=== PATIENT | female | born 1965 | race Caucasian/White ===

== ENCOUNTER 2016-11-27 17:09 | Emergency (ER) | payer OTHER ==
[~2016-11-27] VITALS: Ht 149.9 cm; Wt 68.0 kg
[2016-11-27] MEDS ORDERED: TRAM50TA2 PO (17:28)
[2016-11-27] MEDS ORDERED: DULO60CA45 PO (17:28)
[2016-11-27] MEDS ORDERED: GABA800T2 PO (17:29)
[2016-11-27] MEDS ORDERED: TOPI100T11 PO (17:29)
[2016-11-27] MEDS ORDERED: ATOR10TA PO (17:30)
[2016-11-27] MEDS ORDERED: BUTA-1 GT (17:30)
--- NOTE | 2016-11-27 17:36 | NUR ---
PATIENT BROUGHT IN TO ROOM WAITING TO BE SEEN BY PHYSICIAN. PATIENT HAS HAD MIGRAINES FOR LAST 18 YRS. PAT[place] AND DID NOT BRING MEDICATION FOR MIGRAINES. STATES VICODIN HELPS.
--- NOTE | 2016-11-27 18:30 | NUR ---
PATIENT SEEN BY ER DOCTOR. MEDICATION ORDER AND DISCHARGE PAPERWORK PREPARED
[2016-11-27] MEDS ORDERED: ONDANSETRON ODT 4 MG TAB.RAPDIS SL ONE (18:45)
[2016-11-27] MEDS ORDERED: HYDROCODONE/APAP 10-325 MG TABLET PO ONE (18:45)
--- NOTE | 2016-11-27 18:45 | NUR ---
PATIENT GIVEN DISCHARGE PAPERS AND PRESCRIPTIONS. PATIENT INSTRUCTED NOT TO DRIVE OR OPERATE ANY HEAVY MACHINERY. PATIENT UNDERSTOOD FAMILY WILL BE DRIVING HER HOME.
[2016-11-27] MEDS ORDERED: HYDROCODONE/APAP 10-325 MG TABLET ONE (18:49)
[2016-11-27] MEDS ORDERED: ONDANSETRON HCL 4 MG TABLET ONE (18:49)
== END 2016-11-27 18:49 | disposition home or self-care (01) ==
LOC: ER 17:09
DX: R51 Headache (principal); Z88.6 Allergy status to analgesic agent
CPT/HCPCS: 99283; A4663; Q0162

== ENCOUNTER 2018-07-10 19:41 | Emergency (ER) | payer BC, OTHER ==
[~2018-07-10] VITALS: Ht 152.4 cm; Wt 72.6 kg
[~2018-07-10 19:41] MED LIST: ATOR10TA PO; BUTA-1 GT; DULO60CA45 PO; GABA800T2 PO; TOPI100T PO; TRAM50TA2 PO
--- NOTE | 2018-07-10 20:00 | NUR ---
PATIENT WALKED INTO ER WITH STEADY GAIT A/OX3 C/O LUX X4 DAYS. PATIENT STATES HAS SIMILAR SYMPTOMS IN THE PAST. DENIES N/V
[2018-07-10] MEDS ORDERED: HYDROCODONE/APAP 5-325MG TABLET ONE (20:12)
[2018-07-10] MEDS ORDERED: HYDROCODONE/APAP 10-325 MG TABLET PO ONE (20:15)
[2018-07-10] MEDS ORDERED: HYDROCODONE/APAP 10-325 MG TABLET ONE (20:15)
--- NOTE | 2018-07-10 20:36 | NUR ---
Patient discharged to home in stable conditon. Written and verbal after care instructions given. Patient verbalizes understanding of instructions. WALKED OUT OF ER WITH NO DISTRESS NOTED
[2018-07-10 20:40] VITALS: BP 138/78
== END 2018-07-10 20:41 | disposition home or self-care (01) ==
LOC: ER 19:44
DX: G43.909 Migraine, unspecified, not intractable, without status migrainosus (principal); Z88.6 Allergy status to analgesic agent; Z88.8 Allergy status to other drugs, medicaments and biological substances
CPT/HCPCS: A4663